=== PATIENT | female | born 1960 | race African-American/Black ===

== ENCOUNTER 2017-03-10 05:50 | Day surgery (SDC) | payer MEDICARE, MEDICAID ==
[~2017-03-10] VITALS: Ht 162.6 cm; Wt 136.1 kg
[2017-03-10 06:55] LABS: BASOPHILS % 0.8 % (0.0-2.0); EOSINOPHILS % 1.9 % (0.0-5.0); HEMATOCRIT. 40.5 % (36.0-48.0); HEMOGLOBIN. 13.9 g/dL (12.0-16.0); LYMPHOCYTES % 18.2 % (20.0-50.0); MEAN CORPUSCULAR HEMOGLOBIN 31.4 pg (28.0-32.0); MEAN CORPUSCULAR VOLUME 91.5 fL (81.0-99.0); MEAN PLATELET VOLUME 9.1 fl (7.4-10.4); MONOCYTES % 6.2 % (2.0-8.0); NEUTROPHILS % 72.9 % (40.0-76.0); PLATELET 233 x1000/uL (130-400); RED BLOOD CELL COUNT 4.42 mill/uL (4.2-5.4); RED CELL DISTRIBUTION WIDTH 13.7 % (11.6-14.6)
[2017-03-10 07:01] LABS: INR 1.1; PARTIAL THROMBOPLASTIN TIME 28.4 sec (23.4-31.0)
[2017-03-10 07:14] LABS: CLARITY URINE CLEAR (CLEAR); COLOR URINE YELLOW (YELLOW); GLUCOSE URINE NEGATIVE (NEGATIVE); KETONES URINE NEGATIVE (NEGATIVE); LEUKOCYTE ESTERASE URINE TRACE (NEGATIVE); NITRITE URINE NEGATIVE (NEGATIVE); OCCULT BLOOD URINE NEGATIVE (NEGATIVE); PROTEIN URINE NEGATIVE (NEGATIVE); SPECIFIC GRAVITY URINE 1.019 (1.005-1.030); UROBILINOGEN URINE 0.2 E.U./dL (0.2-1.0)
[2017-03-10] MEDS ORDERED: SODIUM CHLORIDE 0.9% 1,000 ML IV SCH (07:15)
[2017-03-10] MEDS ORDERED: FENTANYL CITRATE/PF 50MCG/ML 2ML VIAL ONE (07:27)
[2017-03-10] MEDS ORDERED: MIDAZOLAM HCL 2 MG/2 ML VIAL ONE (07:27)
[2017-03-10 07:30] LABS: UCG SCREEN NEGATIVE
[2017-03-10] MEDS ORDERED: ACETAMINOPHEN 325MG TABLET PO PRN (07:45)
[2017-03-10] MEDS ORDERED: CEFAZOLIN SODIUM 1000MG/VIAL ONE (08:17)
[2017-03-10] MEDS ORDERED: GLYCOPYRROLATE 0.2 MG/ML 2ML VIAL ONE (08:17)
[2017-03-10] MEDS ORDERED: PROPOFOL 200MG/20ML VIAL IV ONE (08:17)
[2017-03-10] MEDS ORDERED: ONDANSETRON HCL 4MG/2ML VIAL ONE (08:19)
[2017-03-10] MEDS ORDERED: METF850T2 PO (08:31)
[2017-03-10] MEDS ORDERED: FURO20TA4 PO (08:31)
[2017-03-10] MEDS ORDERED: METO1TAB17 PO (08:31)
[2017-03-10] MEDS ORDERED: PRAV20TA57 PO (08:31)
[2017-03-10] MEDS ORDERED: IBUP-1510 PO (08:31)
[2017-03-10] MEDS ORDERED: NIFE60TA64 PO (08:31)
== END 2017-03-10 10:10 | disposition home or self-care (01) ==
LOC: OR 05:50
PROVIDERS: ATTEND Obstetrics & Gynecology Obstetrics
DX: N84.0 Polyp of corpus uteri (principal); E11.9 Type 2 diabetes mellitus without complications; E66.01 Morbid (severe) obesity due to excess calories; I25.10 Atherosclerotic heart disease of native coronary artery without angina pectoris; I10 Essential (primary) hypertension
CPT/HCPCS: 36415; 58558; 80048; 81001; 81025; 82962; 85025; 85610; 85730; 88305; 93005; J0690; J2250; J2405; J3010; J3490; J7030; J2704